=== PATIENT | male | born 2000 | race Caucasian/White ===

== ENCOUNTER 2023-11-08 17:20 | Emergency (ER) | payer OTHER ==
[~2023-11-08] VITALS: Ht 175.2 cm; Wt 99.8 kg
[2023-11-08] MEDS ORDERED: Ketorolac Tromethamine 15 MG/ML VIAL IV ONE (17:40)
[2023-11-08] MEDS ORDERED: diphenhydrAMINE hydrochloride 50 MG/ML VIAL IV ONE (17:40)
[2023-11-08] MEDS ORDERED: SODIUM CHLORIDE 0.9% 1,000 ML IV ONE (17:40)
[2023-11-08] MEDS ORDERED: Metoclopramide Hydrochloride 10 MG/2 ML AMP IV ONE (17:40)
[2023-11-08] MEDS ORDERED: MELOXICAM15 MG PO (18:39)
[2023-11-08] MEDS ORDERED: ONDANSETRON4 MG SL (18:39)
[2023-11-08] MEDS ORDERED: AVPAK AZITHROM250 M1 PO (18:39)
== END 2023-11-08 18:51 | disposition home or self-care (01) ==
LOC: ED 17:20
DX: J40 Bronchitis, not specified as acute or chronic (principal); Z20.822 Contact with and (suspected) exposure to COVID-19; R11.2 Nausea with vomiting, unspecified; M79.10 Myalgia, unspecified site; R53.1 Weakness; F17.210 Nicotine dependence, cigarettes, uncomplicated